=== PATIENT | female | born 1985 | race African-American/Black ===

== ENCOUNTER 2020-01-12 06:51 | Emergency (ER) | payer MEDICAID ==
[~2020-01-12] VITALS: Ht 165.1 cm; Wt 86.4 kg
[~2020-01-12 06:51] MED LIST: AMOXICILLIN 50500 MG PO; AMOXICILLIN 8751 TAB PO; AMOXICILLIN875 MG PO; BACTRIM DS 8001 TAB PO; CEPHALEXIN250 M1 PO; CEPHALEXIN500 M1 PO; CLEOCIN HC150 MG/CAP PO; CLINDAMYCIN150 MG PO; DAILY MULTIPLE1 T18 PO; FLAGYL 250250 MG/TAB PO; LORTAB 5/500 501 TAB PO; METRONIDAZOLE500 MG PO; NAPROSYN500 MG PO; NO HOME MEDICATIONS; NORCO 325 MG-51 TAB PO; PEPCID 20MG TAB20 MG PO; PERCOCET 325 MG1 TA2 PO; SEPTRA DS 8001 TAB PO; ZOFRAN 4MG T4 MG/TAB PO
[2020-01-12 06:56] VITALS: BP 131/89; TEMP 98.3
[2020-01-12] MEDS ORDERED: CEPHALEXIN500 M1 PO (07:09)
[2020-01-12 07:46] VITALS: PULSE 87
== END 2020-01-12 07:46 | disposition home or self-care (01) ==
LOC: COL.ER 06:51
DX: M79.674 Pain in right toe(s) (principal); Z88.6 Allergy status to analgesic agent; X50.0XXA Overexertion from strenuous movement or load, initial encounter; Y93.39 Activity, other involving climbing, rappelling and jumping off

== ENCOUNTER 2020-04-26 08:51 | Emergency (ER) | payer MEDICAID ==
[~2020-04-26] VITALS: Ht 165.1 cm; Wt 87.7 kg
[~2020-04-26 08:51] MED LIST changes: +OMNICEF 300MG300 MG PO; +TESSALON P100 MG/CAP PO
[2020-04-26 08:58] VITALS: TEMP 97.6
[2020-04-26 09:28] LABS: COLLECTION METHOD CLEAN CATCH
[2020-04-26 09:56] LABS: MUCOUS Present /lpf; PH 7 (5-8); URINE APPEARANCE Hazy; URINE BACTERIA None Seen /hpf; URINE BILIRUBIN Negative (NEGATIVE); URINE BLOOD 1+ (NEGATIVE); URINE COLOR Yellow; URINE GLUCOSE Negative (NEGATIVE); URINE KETONE Negative (NEGATIVE); URINE LEUKOCYTE ESTERASE Negative (NEGATIVE); URINE NITRATE Negative (NEGATIVE); URINE PROTEIN(semi-quant) 1+ (NEGATIVE); URINE UROBILINOGEN Negative (NEGATIVE)
[2020-04-26 10:00] LABS: BASO % 0.4 % (0.0-2.0); EOS % 0.3 % (0-4.0); GRAN # 6.4 (1.4-6.5); GRAN % 69.2 % (42.2-75.2); HEMATOCRIT 37.8 % (37.0-47.0); LYMPH # 2.1 (1.2-3.4); LYMPH % 23.2 % (20.0-51.0); MEAN CELL VOLUME 96 fl (80.0-100.0); MEAN CORPUSCULAR HEMOGLOBIN 33 pg (27.0-31.0); MEAN CORPUSCULAR HGB CONC 34 g/dl (33.0-37.0); MONO # 0.6 (0.1-0.6); MONO % 6.5 % (1.7-9.3); PLATELET COUNT 312 K/mm3 (130-400); RED BLOOD COUNT 3.93 M/mm3 (4.10-5.30); REDCELL DISTRIBUTION WIDTH-CV 14.7 % (11.5-14.5)
[2020-04-26 10:18] LABS: ALANINE AMINOTRANSFERASE 17 U/L (4-34); ALBUMIN 4.2 gm/dL (3.5-5.0); ALKALINE PHOSPHATASE 62 U/L (50-136); ANION GAP 8 mmol/L (7-16); AST,SGOT 29 U/L (15-37); BILIRUBIN,TOTAL 0.4 mg/dL (0.0-1.0); BLOOD UREA NITROGEN 11 mg/dL (7-17); CALCIUM 8.9 mg/dL (8.4-10.2); CARBON DIOXIDE 24 mmol/L (22-30); CHLORIDE 108 mmol/L (98-107); CREATININE, serum 0.79 (0.52-1.25); GLUCOSE 84 mg/dL (74-106); POTASSIUM 3.8 mmol/L (3.4-5.0); SODIUM 139 mmol/L (137-145); TOTAL PROTEIN 7.3 gm/dL (6.4-8.2)
[2020-04-26 10:19] LABS: C-REACTIVE PROTEIN < 0.5 mg/dL (0.0-0.9)
[2020-04-26 12:38] VITALS: BP 128/88; PULSE 77
== END 2020-04-26 12:38 | disposition home or self-care (01) ==
LOC: COL.ER 08:51
PROVIDERS: Family Medicine
DX: R51.9 Headache, unspecified (principal); E86.0 Dehydration; F17.210 Nicotine dependence, cigarettes, uncomplicated; Z20.822 Contact with and (suspected) exposure to COVID-19; Z88.6 Allergy status to analgesic agent
CPT/HCPCS: J0780; J1885; J7120

== ENCOUNTER 2020-05-08 14:46 | Emergency (ER) | payer MEDICAID ==
[~2020-05-08] VITALS: Ht 165.1 cm; Wt 89.5 kg
[2020-05-08 14:53] VITALS: TEMP 97.9
[2020-05-08] MEDS ORDERED: PEN-VEE K500 MG PO (15:14)
[2020-05-08] MEDS ORDERED: NORCO 325 MG-51 TAB PO (15:14)
[2020-05-08 15:22] VITALS: BP 140/78; PULSE 81
== END 2020-05-08 15:22 | disposition home or self-care (01) ==
LOC: COL.ER 14:46
DX: K08.89 Other specified disorders of teeth and supporting structures (principal); F17.200 Nicotine dependence, unspecified, uncomplicated; Z88.6 Allergy status to analgesic agent

== ENCOUNTER 2020-07-31 01:39 | Emergency (ER) | payer MEDICAID ==
[~2020-07-31] VITALS: Ht 165.1 cm; Wt 94.1 kg
[~2020-07-31 01:39] MED LIST changes: +PEN-VEE K500 MG PO
[2020-07-31 01:44] VITALS: TEMP 97.2
[2020-07-31 03:08] VITALS: BP 146/72; PULSE 78
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
== END 2020-07-31 03:08 | disposition home or self-care (01) ==
LOC: COL.ER 01:39
DX: S00.83XA Contusion of other part of head, initial encounter (principal); K08.89 Other specified disorders of teeth and supporting structures; Z88.6 Allergy status to analgesic agent; Y04.0XXA Assault by unarmed brawl or fight, initial encounter

== ENCOUNTER 2020-09-20 17:01 | Emergency (ER) | payer MEDICAID ==
[~2020-09-20] VITALS: Ht 165.1 cm; Wt 95.5 kg
[2020-09-20 17:55] VITALS: BP 142/67; PULSE 84; TEMP 98.2
== END 2020-09-20 18:05 | disposition home or self-care (01) ==
LOC: COL.ER 17:01
DX: S56.312A Strain of extensor or abductor muscles, fascia and tendons of left thumb at forearm level, initial encounter (principal); W23.1XXA Caught, crushed, jammed, or pinched between stationary objects, initial encounter; W18.30XA Fall on same level, unspecified, initial encounter; Y92.838 Other recreation area as the place of occurrence of the external cause

== ENCOUNTER 2021-03-04 16:54 | Emergency (ER) | payer MEDICAID ==
[~2021-03-04] VITALS: Ht 165.1 cm; Wt 95.5 kg
[2021-03-04 17:18] VITALS: TEMP 98.4
[2021-03-04] MEDS ORDERED: AMOXICILLIN 8751 TAB PO (17:40)
[2021-03-04 18:20] VITALS: BP 150/79; PULSE 98
== END 2021-03-04 18:20 | disposition home or self-care (01) ==
LOC: COL.ER 16:54
DX: K04.7 Periapical abscess without sinus (principal); S56.012A Strain of flexor muscle, fascia and tendon of left thumb at forearm level, initial encounter; F17.200 Nicotine dependence, unspecified, uncomplicated; Z88.5 Allergy status to narcotic agent; X58.XXXA Exposure to other specified factors, initial encounter
CPT/HCPCS: J1885

== ENCOUNTER 2021-12-14 20:31 | Emergency (ER) | payer MEDICAID ==
[~2021-12-14] VITALS: Ht 165.1 cm; Wt 85.0 kg
[2021-12-14] MEDS ORDERED: ZOFRAN ODT4 MG PO (22:37)
[2021-12-14 22:40] VITALS: BP 120/81; PULSE 94; TEMP 98.3
== END 2021-12-14 22:40 | disposition home or self-care (01) ==
LOC: COL.ER 20:31
DX: B34.9 Viral infection, unspecified (principal); F17.210 Nicotine dependence, cigarettes, uncomplicated; Z28.310 Unvaccinated for COVID-19; Z20.822 Contact with and (suspected) exposure to COVID-19